=== PATIENT | male | born 1970 | race Caucasian/White ===

== ENCOUNTER 2018-03-29 14:33 | Emergency (ER) | payer OTHER ==
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
[2018-03-29] MEDS ORDERED: IBUPROFEN 600 MG TABLET PO STA (16:11)
[2018-03-29 16:30] VITALS: BP 133/98
== END 2018-03-29 16:30 | disposition home or self-care (01) ==
LOC: ED 14:33
DX: S16.1XXA Strain of muscle, fascia and tendon at neck level, initial encounter (principal); S46.911A Strain of unspecified muscle, fascia and tendon at shoulder and upper arm level, right arm, initial encounter; V89.2XXA Person injured in unspecified motor-vehicle accident, traffic, initial encounter; I10 Essential (primary) hypertension
CPT/HCPCS: 99283; A9270